=== PATIENT | male | born 1950 | race Caucasian/White ===

== ENCOUNTER 2023-08-26 06:39 | Day surgery (SDC) | payer MEDICARE, SELFPAY ==
[2023-08-26 11:45] VITALS: BP 144/73
[2023-08-26 11:59] VITALS: BMI 33.5
[2023-08-26 12:00] VITALS: BMI 33.5
[2023-08-26 13:11] VITALS: BP 113/68
[2023-08-26 13:15] VITALS: BP 113/68; BP 114/66
[2023-08-26 13:44] VITALS: BP 134/68
== END 2023-08-26 13:49 | disposition home or self-care (01) ==
LOC: GI 06:39
PROVIDERS: ATTENDING PHYSICIAN Internal Medicine Gastroenterology
DX: Z09 Encounter for follow-up examination after completed treatment for conditions other than malignant neoplasm (principal); D12.3 Benign neoplasm of transverse colon; K63.5 Polyp of colon; K57.30 Diverticulosis of large intestine without perforation or abscess without bleeding; K64.0 First degree hemorrhoids; Z86.010 Personal history of colon polyps; Z98.890 Other specified postprocedural states
CPT/HCPCS: 45385; 45380; 88305

== ENCOUNTER → 2024-08-02 07:02 | Outpatient (REF) | payer MEDICARE, SELFPAY | LOC: DHCBC/DCA 07:02 | PROVIDERS: ATTENDING PHYSICIAN Internal Medicine Cardiovascular Disease; FAMILY PHYSICIAN Nurse Practitioner | DX: I48.0 Paroxysmal atrial fibrillation (principal); I44.0 Atrioventricular block, first degree | CPT/HCPCS: 78452; 93017; A9500; J2785 ==

== ENCOUNTER → 2024-08-05 08:09 | Outpatient (REF) | payer MEDICARE, SELFPAY | LOC: HWRCS 08:09 | PROVIDERS: ATTENDING PHYSICIAN Internal Medicine Cardiovascular Disease; FAMILY PHYSICIAN Nurse Practitioner | DX: I48.0 Paroxysmal atrial fibrillation (principal); I44.0 Atrioventricular block, first degree | CPT/HCPCS: 93306 ==